=== PATIENT | female | born 1990 | race Hispanic/Latino ===

== ENCOUNTER → 2023-12-31 | Outpatient (CLI) | payer OTHER, MEDICAID ==
[~2023-12-31] MED LIST: PNV91TAB3 PO
== END | disposition home or self-care (01) ==
LOC: RAH 15:24
PROVIDERS: ATTEND Obstetrics & Gynecology
DX: N20.0 Calculus of kidney (principal); M54.50 Low back pain, unspecified; N32.89 Other specified disorders of bladder
CPT/HCPCS: 76770

== ENCOUNTER 2024-02-15 14:01 | Observation (INO) | payer OTHER, MEDICAID ==
[~2024-02-15] VITALS: Ht 165.1 cm; Wt 77.1 kg
[2024-02-15 14:23] VITALS: BP 114/71; PULSE 91; RESP 16
[2024-02-15 15:31] LABS: APPEARANCE,URINE CLOUDY (CLEAR); BILIRUBIN,URINE NEGATIVE (NEGATIVE); COLOR,URINE YELLOW (YELLOW); GLUCOSE, URINE (UA) NEGATIVE (NEGATIVE); KETONES,URINE 5 mg/dL (NEGATIVE); LEUKOCYTE ESTERASE ,URINE NEGATIVE Leu/uL (NEGATIVE); NITRATE,URINE NEGATIVE (NEGATIVE); OCCULT BLOOD,URINE NEGATIVE (NEGATIVE); PH,URINE 6.5 (5.0-8.0); PROTEIN,URINE 10 mg/dL (NEGATIVE); UROBILINOGEN,URINE 0.2 mg/dL (0.2-1.0)
[2024-02-15 15:42] LABS: ADD UA MICROSCOPIC YES
[2024-02-15 15:43] LABS: BACTERIA,URINE RARE /HPF (None Seen); MUCUS,URINE FEW LPF (None Seen); SQUAMOUS EPITHELIAL CELL,UR MOD /HPF (0-2)
== END 2024-02-15 16:10 | disposition home or self-care (01) ==
LOC: EDH 14:01 → LDH 15:05
PROVIDERS: ADMIT Obstetrics & Gynecology; ATTEND Obstetrics & Gynecology
DX: O26.893 Other specified pregnancy related conditions, third trimester (principal); R10.12 Left upper quadrant pain; Z3A.33 33 weeks gestation of pregnancy
CPT/HCPCS: 81001; G0379; G0378

== ENCOUNTER 2024-03-11 23:23 | Observation (INO) | payer OTHER, MEDICAID ==
[~2024-03-11] VITALS: Ht 165.1 cm; Wt 81.2 kg
[2024-03-11 23:25] VITALS: BP 108/70; PULSE 92; RESP 20
[2024-03-11 23:55] LABS: APPEARANCE,URINE CLOUDY (CLEAR); BILIRUBIN,URINE NEGATIVE (NEGATIVE); COLOR,URINE YELLOW (YELLOW); GLUCOSE, URINE (UA) NEGATIVE (NEGATIVE); KETONES,URINE NEGATIVE (NEGATIVE); LEUKOCYTE ESTERASE ,URINE 25 Leu/uL (NEGATIVE); NITRATE,URINE NEGATIVE (NEGATIVE); OCCULT BLOOD,URINE LARGE (NEGATIVE); PH,URINE 6.5 (5.0-8.0); PROTEIN,URINE 50 mg/dL (NEGATIVE)
[2024-03-12] LABS: ADD UA MICROSCOPIC YES
[2024-03-12 00:01] LABS: BACTERIA,URINE RARE /HPF (None Seen); MUCUS,URINE FEW LPF (None Seen); SQUAMOUS EPITHELIAL CELL,UR MANY /HPF (0-2)
[2024-03-12] MEDS ORDERED: LACTATED RINGERS 1000ML 1,000 ML IV ONE (00:30)
[2024-03-12 00:42] LABS: HEMATOCRIT 28.4 % (36-48); MEAN CORPUSCULAR HEMOGLOBIN 28.1 pg (27.0-33.0); MEAN CORPUSCULAR HGB CONC 33.8 g/dL (32.0-36.0); RED BLOOD CELL COUNT(AUTO) 3.42 MIL/uL (4.00-5.50); RED CELL DISTRIBUTION WIDTH 13.2 % (11.0-15.5); WHITE BLOOD COUNT (AUTO) 10.2 K/uL (4.8-10.8)
[2024-03-12 01:16] LABS: HIV 1&2 ANTIBODY Non-Reactive (Negative)
[2024-03-12 01:17] LABS: HIV-1 p24 Antigen Non-Reactive (Negative)
[2024-03-12 10:14] LABS: RAPID PLASMA REAGIN NONREACTIVE (NONREACTIVE)
== END 2024-03-12 06:55 | disposition home or self-care (01) ==
LOC: EDH 23:23 → LDH 23:24
PROVIDERS: ADMIT Obstetrics & Gynecology; ATTEND Obstetrics & Gynecology
DX: O46.93 Antepartum hemorrhage, unspecified, third trimester (principal); O99.891 Other specified diseases and conditions complicating pregnancy; M54.50 Low back pain, unspecified; Z3A.37 37 weeks gestation of pregnancy; Z79.899 Other long term (current) drug therapy
CPT/HCPCS: 87086; 81001; 59025; 96360; 85027; 86592; 86850; 86900; 86901; 87340; 86701; 87390; 36415; G0378 ×7; G0379; J7120